=== PATIENT | male | born 1965 | race Caucasian/White ===

== ENCOUNTER → 2016-07-10 | Outpatient (CLI) | payer BC ==
--- NOTE | 2016-07-10 08:48 | CT ---
EXAMINATION TYPE: CT chest w con DATE OF EXAM: 07/10/2016 7:20 AM COMPARISON: NONE HISTORY: Lung nodule follow up CT DLP: 723 mGycm, Automated exposure control for dose reduction was used. CONTRAST: Performed injected with 100 mL of Omnipaque 300. TECHNIQUE: Axial images were obtained at 5 mm thick sections. Reconstructed images are reviewed on [employer] computer in the coronal plane. FINDINGS: Portion of the thyroid visualized is normal. Minimal compressive atelectasis is within the inferior dependent portions of the lung bases. 2 small 4 mm densities are within the right midlung. Series 3 image 27-28. The second nodule is maggie r visualized on the current examination. The first nodule is unchanged. There is a 0.4 cm area of inc reased density within the anterior right middle lobe. Series 3 image 30 which was stable from prior s tudy. No enlarged mediastinal or hilar adenopathy is evident. The ascending aorta diameter at the level o f the main pulmonary artery is 3.2 cm. The main pulmonary artery diameter at the bifurcation is 2.[address] sections are obtained through the upper abdomen. There is moderate fatty infiltration with in the liver abdomen is otherwise unremarkable within the [id number]. IMPRESSIONS: 1. Nodules previously identified are stable. A new nodule may be better visualized on the current konstantin dy. This could be due to volume averaging in the plane of section on the current study. Continued mon itoring is recommended.
== END ==
LOC: RADCTMAIN 06:53
PROVIDERS: ATTEND Family Medicine
DX: R91.8 Other nonspecific abnormal finding of lung field (principal)
CPT/HCPCS: 71260; Q9967

== ENCOUNTER → 2017-08-13 | Outpatient (CLI) | payer BC ==
--- NOTE | 2017-08-13 07:46 | CT ---
EXAMINATION TYPE: CT chest w con DATE OF EXAM: 08/13/2017 COMPARISON: 07/10/2016 and 01/16/2016. HISTORY: Follow-up for lung nodule CT DLP: 693 mGycm. Automated Exposure Control for Dose Reduction was Utilized. TECHNIQUE: CT scan of the thorax is performed following with IV Contrast, patient injected with 100 mL of Isovue 300. FINDINGS: LUNGS: There is overall stability in the 2 anterior right lower lobe pulmonary nodules abutting the i nterlobar fissure on sagittal images in comparison to the exam of 01/16/2016. These measure 4 mm on s eries 4 image 29 and 3 mm on series 4 image 28. Additionally the right middle lobe 4 mm groundglass p ulmonary nodule is also unchanged from the prior exam of 01/16/2016 and is seen on series 4 image 29. 2 mm pulmonary nodule is also seen along the left interlobar fissure within the lingula on series 4 image 40 peripherally. This is also retrospectively unchanged dating back to 2016. This is present on series 4 image 40. Lastly there is a 2 mm pulmonary nodule on series 4 image 12 within the anterior left upper lobe is retrospectively unchanged dating back to 2016. No new pulmonary nodules are seen. Remainder of the lungs are grossly clear with no focal consolidation. There is no pleural effusion or pneumothorax seen. The tracheobronchial tree is patent. MEDIASTINUM: There are no greater than 1 cm hilar or mediastinal lymph nodes. No pericardial effusi on is seen. OTHER: There is redemonstration of hepatic steatosis, partially visualized. There are mild multilevel degenerative changes of thoracic spine. IMPRESSION: Bilateral subcentimeter pulmonary nodules are unchanged dating back to 01/06/2016. Continu ed follow-up in one year is recommended. At that time if these pulmonary nodules are stable they shou ld be considered benign.
== END | disposition home or self-care (01) ==
LOC: RADCTMAIN 06:40
PROVIDERS: ATTEND Family Medicine
DX: R91.8 Other nonspecific abnormal finding of lung field (principal)
CPT/HCPCS: 71260; Q9967

== ENCOUNTER → 2017-11-23 | Outpatient (CLI) | payer BC ==
--- NOTE | 2017-11-23 21:52 | MR ---
EXAMINATION TYPE: MR shoulder RT wo con DATE OF EXAM: 11/23/2017 COMPARISON: Plain films 11/17/2017 [facility] right shoulder HISTORY: Pain in right shoulder TECHNIQUE: Multiplanar, multisequence imaging of the right shoulder is performed without contrast. FINDINGS: Rotator Cuff: There is a tear of the distal supraspinatus tendon at its insertion. This is incomplete and estimated at 1.3 cm in size. No retraction of the tendon or muscle is evident. No muscle atrophy is evident. There is fluid in the subacromial bursa and subdeltoid bursa. Moderate joint effusion is present. Acromioclavicular Joint: Hypertrophy with downward spurring which can contribute to impingement syndr ome. Glenohumeral Joint: Humerus articulates with the glenoid. Labrum: There is loss of the superior glenoid labrum. Tear and degenerative changes are likely presen t. Anterior glenoid labrum likely has a tear. Posterior inferior glenoid labrum is minimal and may peace ve a tear. Biceps Tendon: Long head of the biceps tendon is small but appears to reside within the bicipital maribeth ove. Horizontal portion appears to be visualized as intact. Bone marrow signal: No focal abnormal marrow signal is appreciated. Other: No additional significant abnormality is appreciated. IMPRESSION: 1. There is a tear of the insertion of the supraspinatus tendon estimated at 1.3 cm. No complete tear is evident and no tendon retraction or muscle atrophy is evident. 2. Moderate joint effusion. 3. Acromioclavicular joint hypertrophy. 4. Small long head biceps tendon. Partial tear could be considered. Tendon itself appears intact. 5. Glenoid labral tear likely SLAP lesion from the anterior to the superior portion.
== END | disposition home or self-care (01) ==
LOC: RADMRIMAIN 06:59
PROVIDERS: ATTEND Orthopaedic Surgery
DX: S46.011A Strain of muscle(s) and tendon(s) of the rotator cuff of right shoulder, initial encounter (principal); S43.491A Other sprain of right shoulder joint, initial encounter

== ENCOUNTER → 2018-05-10 | Outpatient (CLI) | payer BC ==
--- NOTE | 2018-05-10 16:34 | MR ---
EXAMINATION TYPE: MR cervical spine wo con DATE OF EXAM: 05/10/2018 COMPARISON: Prior cervical spine MRI 03/04/2017 HISTORY: Neck pain into kalia arms, Kalia arm numbness TECHNIQUE: Multiplanar, multisequence images of the cervical spine were acquired. C2-C3: No evidence for degenerative disc disease. No disc bulge/herniation or protrusion. No Canal stenosis. Foramina are patent bilaterally. C3-C4: No evidence for degenerative disc disease. No disc bulge/herniation or protrusion. No Canal stenosis. Foramina are patent bilaterally. C4-C5: Mild hypertrophic changes encroaches minimally on the foramina. No significant central stenosi s. No disc herniation. C5-C6: Posterior extension of endplate disc complex results in anterior mass effect on the thecal sac , mild spinal stenosis. Hypertrophic changes result in foraminal encroachment right greater than left . C6-C7: Posterior extension endplate disc complex causes mild anterior mass effect on the thecal sac. No significant central stenosis or foraminal encroachment. C7-T1: No evidence for degenerative disc disease. No disc bulge/herniation or protrusion. No Canal stenosis. Foramina are patent bilaterally. Cervical segments are intact. There is normal alignment. Cervical spinal cord is of normal signal. Craniovertebral junction relationships are within normal limits. Patient is status post anterior ce rvical fusion and discectomy at C3-C5. Loss of disc height and signal is present at C5-6 compatible w ith disc desiccation and degenerative disc disease. Minimal retrolisthesis grade 1 C5-6. There is spo ndylosis. IMPRESSION: Postop changes as described. Degenerative disc disease greatest at C5-6.
== END | disposition home or self-care (01) ==
LOC: RADMRIMAIN 11:58
DX: M50.022 Cervical disc disorder at C5-C6 level with myelopathy (principal); Z98.1 Arthrodesis status
CPT/HCPCS: 72141

== ENCOUNTER 2018-08-26 21:49 | Emergency (ER) | payer BC ==
[2018-08-26 22:20] VITALS: BP 135/82; PULSE 91; RESP 20; TEMP 98.3
[2018-08-26] MEDS ORDERED: DIPH,PERTUS(ACELL)TETVAC-LF 0.5 ML VIAL IM ONE (23:20)
[2018-08-26] MEDS ORDERED: LIDOCAINE 1% INJ 10MG/ML (20 ML MDV) SQ ONE (23:20)
--- NOTE | 2018-08-26 23:22 | ED ---
General Adult HPI - General Chief complaint: Wound/Laceration Stated complaint: Hand laceration Time Seen by Provider: 08/26/18 23:15 Source: patient Mode of arrival: ambulatory Limitations: no limitations - History of Present Illness Initial comments: Dictation was produced using [employer] dictation software. please excuse any grammatical, word or spelling errors. Chief Complaint: 53-year-old male presents with hand laceration. History of Present Illness: Lemuel 3-year-old male he was moving pallets when he suffered a crush injury to his right hand. States the event occurred approximately one hour prior to arrival he states that there was significant bleeding initially however it stopped. Patient's last tetanus was 9 years ago. Patient denies any pain A Vazquez the hand. The ROS documented in this emergency department record has been reviewed and confirmed by me. Those systems with pertinent positive or negative responses have been documented in the HPI. All other systems are other negative and/or noncontributory. PHYSICAL EXAM: General Impression: Alert and oriented x3, not in acute distress HEENT: Normocephalic atraumatic, extra-ocular movements intact, pupils equal and reactive to light bilaterally, mucous membranes moist. Cardiovascular: Heart regular rate and rhythm, S1&S2 audible, no murmurs, rubs or gallops Chest: Lungs clear to auscultation bilaterally, no rhonchi, no wheeze, no rales Abdomen: Bowel sounds present, abdomen soft, non-tender, non-distended, no organomegaly Musculoskeletal: Pulses present and equal in all extremities, no peripheral edema Motor: no focal deficits noted Neurological: CN II-XII grossly intact, no focal motor or sensory deficits noted Skin: 2 cm avulsion injury to the right palm area over the thenar eminence Psych: Normal affect and mood ED course: 53-year-old male presents with hand laceration. Signs upon arrival are within acceptable limits. Tetanus updated. Wound was irrigated. hand x- ray is unremarkable for any foreign bodies or acute injuries. Sutures were placed to repair laceration. Patient clear for discharge. Told to follow-up [facility] PCP in 10-14 days for wound check and possible suture removal. - Related Data Home Medications Medication Instructions Recorded Confirmed Dextroamphetamine/Amphetamine 20 mg PO BID 06/12/14 08/26/18 [Adderall] Omeprazole [PriLOSEC] 20 mg PO AC-BRKFST 06/12/14 08/26/18 HYDROcodone/APAP 10-325MG [[place] 1 tab PO TID PRN 11/26/14 08/26/18 10] Gabapentin 800 mg PO BID 08/26/18 08/26/18 Ibuprofen [Motrin] 800 mg PO TID PRN 08/26/18 08/26/18 Multivitamins, Thera [Multivitamin 1 tab PO DAILY 08/26/18 08/26/18 (formulary)] Allergies Allergy/AdvReac Type Severity Reaction Status Date / Time Penicillins Allergy Unknown Verified 08/26/18 23:18 Review of Systems ROS Statement: Those systems with pertinent positive or pertinent negative responses have been documented in the HPI. ROS Other: All systems not noted in ROS Statement are negative. 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 ADHD. GERD History of Any Multi-Drug Resistant Organisms: None Reported Past Surgical History: Back Surgery Additional Past Surgical History / Comment(s): nasal, carpal tunnel release Past Psychological History: No Psychological Hx Reported Smoking Status: Never smoker Past Alcohol Use History: Occasional Past Drug Use History: None Reported General Exam Limitations: no limitations Course Vital Signs 08/26/18 22:17 Temperature 98.3 F Pulse Rate 91 Respiratory 20 Rate Blood Pressure 135/82 O2 Sat by Pulse 96 Oximetry Procedures - Laceration Laceration #1 Consent Obtained: verbal consent Indication: laceration Site: hand Description: flap, avulsion Depth: simple, single layer Anesthetic Used: lidocaine 1% Anesthesia Technique: local infiltration Pre-repair: wound explored, irrigated extensively Type of Sutures: nylon Size of Sutures: 4-0 Technique: simple, interrupted Patient Tolerated Procedure: well Disposition Clinical Impression: Laceration Disposition: HOME SELF-CARE Condition: Good Instructions (If sedation given, give patient instructions): Laceration (ED) Is patient prescribed a controlled substance at d/c from ED?: No Referrals: Sherley Morales DO [Primary Care Provider] - 1-2 days Time of Disposition: 00:12
--- NOTE | 2018-08-26 23:52 | XR ---
EXAM: XR Right Hand Complete, 3 or More Views CLINICAL HISTORY: ITS.REASON XR Reason: Pain TECHNIQUE: Frontal, lateral and oblique views of the right hand. COMPARISON: None FINDINGS: Bones/joints: No displaced fracture or dislocation identified. Mild degenerative changes of the right first MCP joint. Probable artifacts in the scaphoid and capitate. Soft tissues: Diffuse soft tissue swelling tissue swelling. IMPRESSION: No displaced fracture or dislocation identified.
== END 2018-08-27 00:28 | disposition home or self-care (01) ==
LOC: EC 21:49
DX: S67.21XA Crushing injury of right hand, initial encounter (principal); S61.411A Laceration without foreign body of right hand, initial encounter; K21.9 Gastro-esophageal reflux disease without esophagitis; F90.9 Attention-deficit hyperactivity disorder, unspecified type; Z23 Encounter for immunization; Z89.022 Acquired absence of left finger(s); Z79.899 Other long term (current) drug therapy; Z88.0 Allergy status to penicillin; W23.1XXA Caught, crushed, jammed, or pinched between stationary objects, initial encounter; Y93.89 Activity, other specified
CPT/HCPCS: 73130; 90715; 99282; 12001; 90471; J2001

== ENCOUNTER 2018-08-27 19:56 | Emergency (ER) | payer BC ==
[2018-08-27 20:39] VITALS: TEMP 98.8
[2018-08-27] MEDS ORDERED: LIDOCAINE 1% INJ 10MG/ML (20 ML MDV) SQ ONE (22:00)
[2018-08-27] MEDS ORDERED: CEPHALEXIN 500MG STARTER PACK 4 CAP BTL PO STA (23:41)
--- NOTE | 2018-08-27 23:46 | ED ---
General Adult HPI - General Chief complaint: Wound/Laceration Stated complaint: stitches coming out of hand-revisit Time Seen by Provider: 08/27/18 21:26 Source: patient Mode of arrival: ambulatory Limitations: no limitations - History of Present Illness Initial comments: Patient is a 53-year-old male presenting to emergency department with a laceration. Patient reports he was here at the emergency department yesterday for a laceration repair. Patient reportedly received 5 sutures and after he went home and used gloves to work on his garage, the sutures arrival and laceration repair. Patient denies any erythema, swelling, discharge. Patient denies fever, nausea, vomiting, lightheadedness, chest pain, shortness of breath, headaches. Patient reports his tetanus status is up-to-date. Patient denies any numbness or tingling. Patient denies any numbness tingling or limited range of motion. Patient reports the pain is exacerbated due to his carpal tunnel. - Related Data Home Medications Medication Instructions Recorded Confirmed Dextroamphetamine/Amphetamine 20 mg PO BID 06/12/14 08/26/18 [Adderall] Omeprazole [PriLOSEC] 20 mg PO AC-BRKFST 06/12/14 08/26/18 HYDROcodone/APAP 10-325MG [[place] 1 tab PO TID PRN 11/26/14 08/26/18 10] Gabapentin 800 mg PO BID 08/26/18 08/26/18 Ibuprofen [Motrin] 800 mg PO TID PRN 08/26/18 08/26/18 Multivitamins, Thera [Multivitamin 1 tab PO DAILY 08/26/18 08/26/18 (formulary)] Previous Rx's Medication Instructions Recorded Cephalexin [Keflex] 500 mg PO Q6HR #40 cap 08/27/18 Allergies Allergy/AdvReac Type Severity Reaction Status Date / Time No Known Allergies Allergy Verified 08/27/18 20:39 Review of Systems ROS Statement: Those systems with pertinent positive or pertinent negative responses have been documented in the HPI. ROS Other: All systems not noted in ROS Statement are negative. 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 ADHD. GERD History of Any Multi-Drug Resistant Organisms: MRSA Date of last positivie culture/infection: 2014 MDRO Source:: knee Past Surgical History: Back Surgery Additional Past Surgical History / Comment(s): nasal, carpal tunnel release, neck Past Psychological History: No Psychological Hx Reported Smoking Status: Never smoker Past Alcohol Use History: Occasional Past Drug Use History: None Reported General Exam Limitations: no limitations General appearance: alert, in no apparent distress Head exam: Present: atraumatic, normocephalic, normal inspection Eye exam: Present: normal appearance, PERRL, EOMI Pupils: Present: normal accommodation ENT exam: Present: normal exam Neck exam: Present: normal inspection Respiratory exam: Present: normal lung sounds bilaterally Cardiovascular Exam: Present: regular rate, normal rhythm, normal heart sounds Extremities exam: Present: normal capillary refill, other (3 cm flap laceration with 2 sutures intact in [address].) Back exam: Present: normal inspection Neurological exam: Present: alert, oriented X3 Psychiatric exam: Present: normal affect, normal mood Skin exam: Present: warm, intact, normal color Course Vital Signs 08/27/18 20:35 Temperature 98.8 F Pulse Rate 91 Respiratory 16 Rate Blood Pressure 132/82 O2 Sat by Pulse 98 Oximetry Procedures - Laceration Laceration #1 Consent Obtained: verbal consent Indication: laceration Site: hand Size (cm): 3 Description: flap Depth: simple, single layer Anesthetic Used: lidocaine 1% Anesthesia Technique: local infiltration Amount (mls): 10 Type of Sutures: nylon Size of Sutures: 4-0 Technique: simple, interrupted Patient Tolerated Procedure: well Medical Decision Making - Medical Decision Making Patient is a 53-year-old male presenting to emergency department with a laceration. I removed the old sutures and placed 5 sutures. Patient will also be discharged with Keflex. Patient advised to follow-up primary care. Patient advised to return to emergency department if symptoms worsen. Patient advised to return after 10 days for suture removal. Case discussed with physician. Disposition Clinical Impression: Laceration Disposition: HOME SELF-CARE Condition: Stable Additional Instructions: Please take prescribed medication as directed. Please follow up primary care. Patient to emergency department if symptoms worsen. Prescriptions: Cephalexin [Keflex] 500 mg PO Q6HR #40 cap Is patient prescribed a controlled substance at d/c from ED?: No Referrals: Sherley Morales DO [Primary Care Provider] - 1-2 days Time of Disposition: 23:46
[2018-08-27 23:47] VITALS: BP 147/86; PULSE 81; RESP 18
== END 2018-08-27 23:56 | disposition home or self-care (01) ==
LOC: EC 19:56
DX: S61.411A Laceration without foreign body of right hand, initial encounter (principal); K21.9 Gastro-esophageal reflux disease without esophagitis; F90.9 Attention-deficit hyperactivity disorder, unspecified type; Z79.899 Other long term (current) drug therapy; Z86.14 Personal history of Methicillin resistant Staphylococcus aureus infection; X58.XXXA Exposure to other specified factors, initial encounter; Y93.89 Activity, other specified
CPT/HCPCS: 99282; 12002; J2001

== ENCOUNTER → 2019-05-17 | Outpatient (CLI) | payer BC ==
--- NOTE | 2019-05-17 11:36 | MR ---
EXAMINATION TYPE: MR cervical spine wo/w con DATE OF EXAM: 05/17/2019 COMPARISON: 03/04/2017 HISTORY: 54-year-old male Cervicalgia Technique: Multiplanar, multisequence images of the cervical spine were obtained before and after adm inistration of 10 mL intravenous Gadavist gadolinium contrast. FINDINGS: No craniocervical junction anomaly, predental space widening, or prevertebral soft tissue swelling. Reversal of the normal cervical doses all preserved alignment. Status post ACDF from C3 through C5 levels. There is degenerative disc disease below the fusion at C5 -C6 with desiccated and diffusely bulging disc. There seems to be some degenerative ankylosis across the right-sided C3-C4 facet joints. Multilevel h ypertrophic facet and uncovertebral joint arthropathy is present. Normal course and signal intensity of the cervical spinal cord. No abnormal enhancement within the sp inal canal. At C2-C3, facet arthropathy without significant canal or foraminal stenosis. At C3-C4, mild facet arthropathy without significant canal or foraminal stenosis. At C4-C5, mild facet arthropathy without significant canal or foraminal stenosis. At C5-C6, below the fusion, there is broad-based posterior disc protrusion with uncovertebral joint a nd facet degenerative change. Changes result in moderate right neural foraminal stenosis and mild spi nal canal stenosis with abutment and slight flattening of the ventral cord. At C6-C7, facet and uncovertebral joint arthropathy with mild left neural foraminal stenosis. Mild po sterior disc bulge causes minimal narrowing of the spinal canal. At C7-T1, facet arthropathy with mild bilateral neuroforaminal stenoses. No spinal canal stenosis. No prevertebral or paravertebral soft tissue abnormality. IMPRESSION: 1. Interval C3-C5 ACDF. There is also been interval degenerative ankylosis across the right-sided C3- C4 facet joint. 2. Moderate progressive degenerative disc disease at C5-C6, below the fusion. Disc bulge with facet a nd uncovertebral joint arthropathy here causes mild spinal canal stenosis with abutment and slight fl attening of the ventral cord. Moderate right neuroforaminal stenosis. 3. Additional scattered facet and uncovertebral joint arthropathy. There is mild left neural foramina l stenosis at C6-C7 and mild on both sides at C7-T1.
== END | disposition home or self-care (01) ==
LOC: RADMRIMAIN 10:22
PROVIDERS: ATTEND Family Medicine
DX: M48.02 Spinal stenosis, cervical region (principal); M48.03 Spinal stenosis, cervicothoracic region; M50.122 Cervical disc disorder at C5-C6 level with radiculopathy; M46.92 Unspecified inflammatory spondylopathy, cervical region; Z98.1 Arthrodesis status
CPT/HCPCS: 72156; A9585

== ENCOUNTER → 2020-09-26 | Outpatient (CLI) | payer BC ==
--- NOTE | 2020-09-26 15:44 | US ---
EXAMINATION TYPE: US venous doppler duplex LE LT DATE OF EXAM: 09/26/2020 2:32 PM COMPARISON: 11/26/2014 CLINICAL HISTORY: M25.562, M25.222, M17.12. Left knee pain. No redness. No swelling. SIDE PERFORMED: Left TECHNIQUE: The lower extremity deep venous system is examined utilizing real time linear array sonog radha with graded compression, doppler sonography and color-flow sonography. VESSELS IMAGED: Common Femoral Vein Deep Femoral Vein Greater Saphenous Vein * Femoral Vein Popliteal Vein Small Saphenous Vein * Proximal Calf Veins (* superficial vessels) Left Leg: Negative for DVT IMPRESSION: 1. No evidence of deep venous thrombosis in the left lower extremity veins.
== END | disposition home or self-care (01) ==
LOC: RADUSWWP 14:04
PROVIDERS: ATTEND Orthopaedic Surgery
DX: M23.222 Derangement of posterior horn of medial meniscus due to old tear or injury, left knee (principal); M17.12 Unilateral primary osteoarthritis, left knee; I80.9 Phlebitis and thrombophlebitis of unspecified site; Z48.89 Encounter for other specified surgical aftercare

== ENCOUNTER 2020-11-02 06:23 | Emergency (ER) | payer BC ==
[2020-11-02 06:29] VITALS: TEMP 97.5
[2020-11-02] MEDS ORDERED: SODIUM CHLORIDE 0.9% 1,000 ML IV STA (06:35)
[2020-11-02] MEDS ORDERED: HYDROmorphone 1 MG/ML 1 ML SYRINGE IVP STA ×2 (06:35→08:01)
[2020-11-02] MEDS ORDERED: ONDANSETRON 4 MG/2 ML VIAL IVP STA (06:35)
[2020-11-02 07:00] LABS: Basophils % (A) 0 %; Eosinophils # (A) 0.1 k/uL (0-0.7); Eosinophils % (A) 1 %; HCT 45.6 % (39.0-53.0); HGB 15.2 gm/dL (13.0-17.5); Lymphocytes # (A) 1.2 k/uL (1.0-4.8); Lymphocytes % (A) 12 %; MCH 31.3 pg (25.0-35.0); MCHC 33.3 g/dL (31.0-37.0); MCV 94.2 fL (80.0-100.0); Monocytes # (A) 0.3 k/uL (0-1.0); Monocytes % (A) 3 %; Neutrophils # (A) 8.3 k/uL (1.3-7.7); Neutrophils % (A) 83 %; Platelet Count 331 k/uL (150-450); RBC 4.84 m/uL (4.30-5.90); RDW 12.2 % (11.5-15.5); WBC 10.1 k/uL (3.8-10.6)
[2020-11-02 07:17] LABS: ALT 39 U/L (4-49); AST 32 U/L (17-59); African American GFR (CKD) >90 (>60 ml/min/1.73 sqM); Albumin 4.7 g/dL (3.5-5.0); Alkaline Phosphatase 96 U/L (38-126); Amylase 54 U/L (30-110); Anion Gap 11 mmol/L; Blood Urea Nitrogen 17 mg/dL (9-20); Calcium 10.3 mg/dL (8.4-10.2); Carbon Dioxide 23 mmol/L (22-30); Chloride 107 mmol/L (98-107); Glucose 136 mg/dL (74-99); Lipase 75 U/L (23-300); Non-African American GFR(CKD) 84 (>60 ml/min/1.73 sqM); Potassium 4.3 mmol/L (3.5-5.1); Sodium 141 mmol/L (137-145); Total Bilirubin 0.4 mg/dL (0.2-1.3); Total Protein 7.4 g/dL (6.3-8.2)
--- NOTE | 2020-11-02 08:28 | CT ---
EXAMINATION TYPE: CT abdomen pelvis w con DATE OF EXAM: 11/02/2020 COMPARISON: NONE HISTORY: 55-year-old male with abdominal pain, constipation for 2 days TECHNIQUE: Contiguous axial scanning of the abdomen and pelvis following administration of 100 ml Iso shalom 300 IV contrast. Delayed images through the kidneys and coronal/sagittal reconstructions perform ed. CT DLP: 1671.4 mGycm Automated exposure control for dose reduction was used. FINDINGS: Heart upper limits of normal in size without pericardial effusion. Prominent hazy dependent atelectas is in the visualized lower lungs. Liver enlarged measuring 20.9 cm. Tiny hypervascular focus at the right hepatic dome, probable vascul ar shunting.. Portal venous system is patent. No biliary ductal dilatation. Gallbladder, adrenal glands, spleen with a anterior inferior splenule, and pancreas appear within nor mal limits. Right kidney shows a punctate 2 mm nonobstructive lower pole renal calculus and a cortical scar at th e posterior upper pole. Left kidney also shows cortical scar posterior upper pole, couple punctate 2 mm nonobstructive calcul i, and mild hydronephrosis with perinephric edema and delayed excretion of contrast from the left kid yvon. There is a 3 mm calculus at the left UVJ. There is a single mildly dilated loop of small bowel in the left mid abdomen with a caliber of 3.3 cm there is narrowing to normal caliber on either end of this 15 cm long segment and findings may be in cidental and transient or could represent a regional ileus. Clinical surveillance can be performed to exclude some type of unusual internal hernia here. No free fluid or free air. Normal appendix. Mild scattered stool. No perisplenic inflammatory change. Bladder urine distended. Prostate gland measures 4.0 cm wide. Patulous left inguinal canal. No abnorm al fluid collection pelvis or pelvic lymphadenopathy. Colon mild degenerative change at the hips. Degenerative bridging ankylosis left SI joint. Mild multi level degenerative disc disease throughout the spine. Hypertrophic facet arthropathy lumbar spine. IMPRESSION: 1. A 3 MM CALCULUS AT THE LEFT UVJ WITH MILD OBSTRUCTIVE UROPATHY. ASSOCIATED PROMINENT PERINEPHRIC E KATIE IS LIKELY REACTIVE TO THE URETERAL OBSTRUCTION. SUPERIMPOSED INFECTION CAN BE EXCLUDED ON A CLIN ICAL BASIS. 2. ADDITIONAL PUNCTATE 2 MM NONOBSTRUCTIVE CALCULI IN BOTH KIDNEYS. 3. A SINGLE MILDLY DILATED LOOP OF SMALL BOWEL IN THE LEFT MID ABDOMEN MEASURES UP TO 3.3 CM. THIS MA Y BE TRANSIENT OR COULD REPRESENT A REGIONAL ILEUS. CLINICAL SURVEILLANCE TO EXCLUDE WORSENING SUCH A S FROM SOME TYPE OF UNUSUAL INTERNAL HERNIA. 4. HEPATOMEGALY (20.9 CM).
--- NOTE | 2020-11-02 08:38 | ED ---
Abdominal Pain HPI - General Chief Complaint: Abdominal Pain Stated Complaint: ABD pain Time Seen by Provider: 11/02/20 06:31 Source: patient, RN notes reviewed Mode of arrival: ambulatory - History of Present Illness Initial Comments: Patient is a 55-year-old male that presents to emergency department complaining of left-sided abdominal pain with some mild constipation. He notes that he recently had rotator cuff surgery is been taking his painkillers as prescribed. He notes that last night he started taking stool softeners because he felt like he is backed up. He notes that the pain started approximately 1:00 this morning came out of nowhere. He notes that he did have one bout of urination or he thought he might have a UTI due to some burning. Patient denies any intra- abdominal surgery history or abdominal medical history. He was otherwise a well-appearing 55-year-old male in moderate amounts pain or distress. He notes that his pain was approximately a 10 out of 10 and has not taken anything for pain. He denied any chest pain shortness breath headache vomiting fever fatigue chills melena hematochezia or hematemesis. - Related Data Home Medications Medication Instructions Recorded Confirmed Dextroamphetamine/Amphetamine 20 mg PO BID 06/12/14 08/26/18 [Adderall] Omeprazole [PriLOSEC] 20 mg PO AC-BRKFST 06/12/14 08/26/18 HYDROcodone/APAP 10-325MG [[place] 1 tab PO TID PRN 11/26/14 08/26/18 10] Gabapentin 800 mg PO BID 08/26/18 08/26/18 Ibuprofen [Motrin] 800 mg PO TID PRN 08/26/18 08/26/18 Multivitamins, Thera [Multivitamin 1 tab PO DAILY 08/26/18 08/26/18 (formulary)] Previous Rx's Medication Instructions Recorded Cephalexin [Keflex] 500 mg PO Q6HR #40 cap 08/27/18 Ketorolac [Toradol] 10 mg PO Q8HR #15 tab 11/02/20 Ondansetron Odt [Zofran Odt] 4 mg PO Q8HR PRN #10 tab 11/02/20 Tamsulosin [Flomax] 0.4 mg PO DAILY #7 cap 11/02/20 Allergies Allergy/AdvReac Type Severity Reaction Status Date / Time No Known Allergies Allergy Verified 11/02/20 06:29 Review of Systems ROS Statement: Those systems with pertinent positive or pertinent negative responses have been documented in the HPI. ROS Other: All systems not noted in ROS Statement are negative. 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 ADHD. GERD History of Any Multi-Drug Resistant Organisms: MRSA Date of last positivie culture/infection: 2014 MDRO Source:: knee Past Surgical History: Back Surgery Additional Past Surgical History / Comment(s): nasal, carpal tunnel release, neck Past Psychological History: No Psychological Hx Reported Smoking Status: Never smoker Past Alcohol Use History: Occasional Past Drug Use History: None Reported General Exam General appearance: alert, in no apparent distress Head exam: Present: atraumatic, normocephalic, normal inspection Eye exam: Present: normal appearance, PERRL, EOMI. Absent: scleral icterus, conjunctival injection, periorbital swelling Neck exam: Present: normal inspection Respiratory exam: Present: normal lung sounds bilaterally. Absent: respiratory distress, wheezes, rales, rhonchi, stridor Cardiovascular Exam: Present: regular rate, normal rhythm, normal heart sounds. Absent: systolic murmur, diastolic murmur, rubs, gallop, clicks GI/Abdominal exam: Present: soft, tenderness (Left hemisphere.), normal bowel sounds. Absent: distended, guarding, rebound, rigid Extremities exam: Present: normal inspection, full ROM, normal capillary refill. Absent: tenderness, pedal edema, joint swelling, calf tenderness Neurological exam: Present: alert, oriented X3 Psychiatric exam: Present: normal affect, normal mood Skin exam: Present: warm, dry, intact, normal color. Absent: rash Course Vital Signs 11/02/20 11/02/20 06:25 08:00 Temperature 97.5 F L Pulse Rate 74 74 Respiratory 19 22 Rate Blood Pressure 154/99 131/84 O2 Sat by Pulse 98 98 Oximetry Medical Decision Making - Medical Decision Making 55-year-old male status post rotator cuff surgery complaining of left-sided abdominal pain. He notes that he's been taking his narcotic painkillers without stool softeners thinks he may be constipated. Labs, 1 L normal saline, 1 mg of Dilaudid, CT of the abdomen and pelvis ordered. Labs unremarkable. Computed tomography scan shows several small kidney stones one in the left UVJ with mild obstruction. Case discussed with Dr. Loo, patient can discharge home with conservative management. Patient instructed to return if anything worsens or changes. - Lab Data Result diagrams: 11/02/20 06:54 11/02/20 06:54 Lab Results 11/02/20 11/02/20 Range/Units 06:54 06:54 WBC 10.1 (3.8-10.6) k/uL RBC 4.84 (4.30-5.90) m/uL Hgb 15.2 (13.0-17.5) gm/dL Hct 45.6 (39.0-53.0) % MCV 94.2 (80.0-100.0) fL MCH 31.3 (25.0-35.0) pg MCHC 33.3 (31.0-37.0) g/dL RDW 12.2 (11.5-15.5) % Plt Count 331 (150-450) k/uL MPV 8.0 Neutrophils % 83 % Lymphocytes % 12 % Monocytes % 3 % Eosinophils % 1 % Basophils % 0 % Neutrophils # 8.3 H (1.3-7.7) k/uL Lymphocytes # 1.2 (1.0-4.8) k/uL Monocytes # 0.3 (0-1.0) k/uL Eosinophils # 0.1 (0-0.7) k/uL Basophils # 0.0 (0-0.2) k/uL Sodium 141 (137-145) mmol/L Potassium 4.3 (3.5-5.1) mmol/L Chloride 107 (98-107) mmol/L Carbon Dioxide 23 (22-30) mmol/L Anion Gap 11 mmol/L BUN 17 (9-20) mg/dL Creatinine 1.00 (0.66-1.25) mg/dL Est GFR (CKD-EPI)AfAm >90 (>60 ml/min/1.73 sqM) Est GFR (CKD-EPI)NonAf 84 (>60 ml/min/1.73 sqM) Glucose 136 H (74-99) mg/dL Calcium 10.3 H (8.4-10.2) mg/dL Total Bilirubin 0.4 (0.2-1.3) mg/dL AST 32 (17-59) U/L ALT 39 (4-49) U/L Alkaline Phosphatase 96 (38-126) U/L Total Protein 7.4 (6.3-8.2) g/dL Albumin 4.7 (3.5-5.0) g/dL Amylase 54 (30-110) U/L Lipase 75 (23-300) U/L - Radiology Data Radiology results: report reviewed, image reviewed Computed tomography scan of the abdomen and pelvis: A 3 mm calculus at the left UVJ with mild obstructive uropathy. Associated prominent perinephric edema is likely reactive to the ureteral obstruction. Superimposed infection can't be excluded on a clinical basis. Additional punctate 2 mm nonobstructive calculi in both kidneys. A single mildly dilated loop of small bowel in the left mid abdomen measures up to 3.3 cm. This may be transient or could represent a regional ileus clinical surveillance to exclude worsening such as from some type of unusual internal hernia. Hepatomegaly. Disposition Clinical Impression: Abdominal pain, Bilateral kidney stones Disposition: HOME SELF-CARE Condition: Stable Instructions (If sedation given, give patient instructions): Abdominal Pain (ED) Additional Instructions: Please return to the Emergency Department if symptoms worsen or any other concerns. Follow-up with primary care in the next 1-2 days. Follow-up with urologist as planned. Take Toradol, Zofran, Flomax as prescribed. Increase oral fluids. Is patient prescribed a controlled substance at d/c from ED?: No Referrals: Sherley Morales DO [Primary Care Provider] - 1-2 days Time of Disposition: 09:02
[2020-11-02] MEDS ORDERED: KETOROLAC 15 MG/ML 1 ML VIAL IVP STA (09:00)
[2020-11-02 09:50] VITALS: RESP 18
[2020-11-02 09:54] VITALS: BP 147/103; PULSE 71
[2020-11-02 10:31] LABS: Appearance,Urine Clear (Clear); Bilirubin,Urine Negative (Negative); Blood,Urine Negative (Negative); Color,Urine Light Yellow; Glucose,Urine (UA) Negative (Negative); Ketones,Urine Negative (Negative); Leukocyte Esterase,Urine Negative (Negative); Nitrite,Urine Negative (Negative); PH, Urine 7.5 (5.0-8.0); Protein,Urine Negative (Negative); Specific Gravity,Urine 1.024 (1.001-1.035); Urobilinogen,Urine <2.0 mg/dL (<2.0)
== END 2020-11-02 09:54 | disposition home or self-care (01) ==
LOC: EC 06:23
DX: N20.0 Calculus of kidney (principal); K59.00 Constipation, unspecified; K21.9 Gastro-esophageal reflux disease without esophagitis; Z79.899 Other long term (current) drug therapy
CPT/HCPCS: 99284; 96374 ×2; 96375; 96361; 36415; 80053; 82150; 83690; 85025; 81003; 74177; J2405; J1170; J1885; Q9967

== ENCOUNTER 2023-09-12 10:00 | Emergency (ER) | payer BC ==
[2023-09-12 10:10] VITALS: BP 157/90; PULSE 75; RESP 20; TEMP 98.1
[2023-09-12] MEDS: DIPH,PERTUS(ACELL)TETVAC-LF 0.5 ML VIAL IM ONE (10:36)
[2023-09-12] MEDS: LIDOCAINE 1% INJ 10MG/ML (20 ML MDV) SQ ONE (10:37)
[2023-09-12] MEDS: IBUPROFEN 800 MG TAB PO STA (10:38)
[2023-09-12] MEDS: MORPHINE SULFATE 2 MG/ML SYRINGE IM STA (10:38)
--- NOTE | 2023-09-12 11:08 | ED ---
Wound/Laceration HPI - General Chief Complaint: Wound/Laceration Stated Complaint: Head Laceration Time Seen by Provider: 09/12/23 10:11 Source: patient, RN notes reviewed Mode of arrival: ambulatory Limitations: no limitations - History of Present Illness Initial Comments: This is a 58-year-old male who presents to the emergency department for a forehead laceration. 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 There was no impact anywhere aside from the part of his forehead where there is a laceration. Denies any loss consciousness. Not taking any blood thinners. Unsure when his last tetanus vaccine was. - Related Data Home Medications Medication Instructions Recorded Confirmed Dextroamphetamine/Amphetamine 20 mg PO BID 06/12/14 08/26/18 [Adderall] Omeprazole [PriLOSEC] 20 mg PO AC-BRKFST 06/12/14 08/26/18 HYDROcodone/APAP 10-325MG [[place] 1 tab PO TID PRN 11/26/14 08/26/18 10] Gabapentin 800 mg PO BID 08/26/18 08/26/18 Ibuprofen [Motrin] 800 mg PO TID PRN 08/26/18 08/26/18 Multivitamins, Thera [Multivitamin 1 tab PO DAILY 08/26/18 08/26/18 (formulary)] Previous Rx's Medication Instructions Recorded Cephalexin [Keflex] 500 mg PO Q6HR #40 cap 08/27/18 Ketorolac [Toradol] 10 mg PO Q8HR #15 tab 11/02/20 Ondansetron Odt [Zofran Odt] 4 mg PO Q8HR PRN #10 tab 11/02/20 Tamsulosin [Flomax] 0.4 mg PO DAILY #7 cap 11/02/20 Allergies Allergy/AdvReac Type Severity Reaction Status Date / Time No Known Allergies Allergy Verified 09/12/23 10:10 Review of Systems ROS Statement: Those systems with pertinent positive or pertinent negative responses have been documented in the HPI. ROS Other: All systems not noted in ROS Statement are negative. 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 ADHD. GERD History of Any Multi-Drug Resistant Organisms: MRSA Date of last positivie culture/infection: 2014 MDRO Source:: knee Past Surgical History: Back Surgery Additional Past Surgical History / Comment(s): nasal, carpal tunnel release, neck Past Psychological History: No Psychological Hx Reported Smoking Status: Never smoker Past Alcohol Use History: Occasional Past Drug Use History: None Reported General Exam Limitations: no limitations General appearance: alert, in no apparent distress Head exam: Present: other (V-shaped laceration to the right side of the forehead. Active bleeding.) Eye exam: Present: normal appearance, PERRL, EOMI. Absent: scleral icterus, conjunctival injection, periorbital swelling Respiratory exam: Present: normal lung sounds bilaterally. Absent: respiratory distress, wheezes, rales, rhonchi, stridor Cardiovascular Exam: Present: regular rate, normal rhythm, normal heart sounds. Absent: systolic murmur, diastolic murmur, rubs, gallop, clicks Neurological exam: Present: alert, oriented X3, CN II-XII intact Psychiatric exam: Present: normal affect, normal mood Course Vital Signs 09/12/23 09/12/23 10:08 11:29 Temperature 98.1 F 98.1 F Pulse Rate 75 75 Respiratory 20 20 Rate Blood Pressure 157/90 157/90 O2 Sat by Pulse 99 99 Oximetry Procedures - Laceration Laceration #1 Consent Obtained: verbal consent Indication: laceration Site: face Size (cm): 8 Description: flap Depth: simple, single layer Anesthetic Used: lidocaine 1% Anesthesia Technique: local infiltration Amount (mls): 5 Pre-repair: wound explored, irrigated extensively Type of Sutures: nylon Size of Sutures: 5-0 Number of Sutures: 10 Technique: simple, interrupted Medical Decision Making - Medical Decision Making This is a 58 year old male who presents to the emergency department for a laceration. Was pt. sent in by a medical professional or institution? @ -No Did you speak to anyone other than the patient for history? @ -No Did you review nursing and triage notes? @ -Yes, and I agree, it is accurate with regards to the patient's symptoms. Were old charts reviewed? @ -No Differential Diagnosis? @ -Differential Laceration: Laceration, abrasion, burn, abscess, cellulitis, this is not meant to be an all- inclusive list. EKG interpreted by me (3pts min.)? @ -Not obtained X-rays interpreted by me (1pt min.)? @ -Not obtained CT interpreted by me (1pt min.)? @ -Not obtained U/S interpreted by me (1pt. min.)? @ -Not obtained What testing was considered but not performed? (CT, X-rays, U/S, labs)? Why? @ -None What meds were considered but not given? Why? @ -None Did you discuss the management of the patient with other professionals? @ -No Did you reconcile home meds? @ -No Was smoking cessation discussed for >3mins.? @ -No Was critical care preformed (if so, how long)? @ -No Were there social determinants of health that impacted care today? How? (Homelessness, low income, unemployed, alcoholism, drug addiction, transportation, low edu. Level, literacy, decrease access to med. care, halfway, rehab)? @ -No Was there de-escalation of care discussed even if they declined? (Discuss DNR or withdrawal of care, Hospice)? @ -No What co-morbidities impacted this encounter? (DM, HTN, Smoking, COPD, CAD, Cancer, CVA, Hep., AIDS, mental health diagnosis, sleep apnea, morbid obesity)? @ -None Was patient admitted / discharged? @ -Discharged. Physical examination demonstrates a laceration to the right side of the forehead. Patient did not sustain a substantial impact to the head in addition to the laceration. Because there was no loss of consciousness, he is not on any blood thinners, and has a GCS of 15, no imaging was obtained. Tetanus vaccine was updated. Laceration was thoroughly cleansed and repaired with sutures. Advised ibuprofen and Tylenol as needed for pain relief and returning in 10 to 14 days for suture removal. Undiagnosed new problem with uncertain prognosis? @ -None Drug Therapy requiring intensive monitoring for toxicity (Heparin, Nitro, Insulin, Cardizem)? @ -None Were any procedures done? @ -Laceration repair with sutures Diagnosis/symptom? @ -Laceration Acute, or Chronic, or Acute on Chronic? @ -Acute Uncomplicated (without systemic symptoms) or Complicated (systemic symptoms)? @ -Uncomplicated Side effects of treatment? @ -None Exacerbation, Progression, or Severe Exacerbation] @ -Not applicable Poses a threat to life or bodily function? @ -No Return precautions reviewed in depth, the patient is instructed to return to the emergency department with any new, worsening, or concerning symptoms. Patient verbalized understanding. This case was discussed in detail with the attending ED physician, Dr. Campos. Presentation, findings, and treatment plan discussed in detail as well. Disposition Clinical Impression: Laceration Disposition: HOME SELF-CARE Instructions (If sedation given, give patient instructions): Care For Your Stitches (ED) Additional Instructions: Return to the emergency department with any new, worsening, or concerning symptoms and in 10-14 days for removal of your stitches. Alternate with ibuprofen and Tylenol as needed for pain relief. Is patient prescribed a controlled substance at d/c from ED?: No Referrals: Ilir Morales MD [Primary Care Provider] - 1-2 days Time of Disposition: 11:08
== END 2023-09-12 11:30 | disposition home or self-care (01) ==
LOC: EC 10:00
DX: S01.81XA Laceration without foreign body of other part of head, initial encounter (principal); Z23 Encounter for immunization; X58.XXXA Exposure to other specified factors, initial encounter
CPT/HCPCS: 90715; 99282; 96372; 90471; 12015; J2001; J2270

== ENCOUNTER → 2023-09-17 | Outpatient (CLI) | payer BC ==
--- NOTE | 2023-09-17 19:50 | MR ---
EXAMINATION TYPE: MR knee RT wo con DATE OF EXAM: 09/17/2023 COMPARISON: None HISTORY: Right knee pain. TECHNIQUE: Multiplanar, multisequence imaging of the right knee is performed without IV contrast. FINDINGS: Findings: There is mild contusion of the posterior mid tibial plateau without acute fracture. There is a small joint effusion. There is a small ganglion cyst associated with the distal posterior cruciate ligament. Anterior and p osterior cruciate ligaments are intact. There is a grade 1-2 strain medial collateral ligament. The lateral collateral ligament is intact. There is a tear of the posterior horn of the medial meniscus. The lateral meniscus is intact. There is moderate narrowing of the medial femoral condyle cartilage and mild narrowing of the lateral femoral condyle cartilage consistent with osteoarthritic change. There is complete loss of the cartilage of the medial patellar facet.. IMPRESSION: 1. Tricompartment osteoarthritis as described above. 2. Small joint effusion and mild tibial plateau contusion. 3. Grade 1-2 strain of the medial collateral ligament. 4. Tear of the posterior horn of the medial meniscus.
== END | disposition home or self-care (01) ==
LOC: RADMRIMAIN 17:04
PROVIDERS: ATTEND Orthopaedic Surgery
DX: M17.11 Unilateral primary osteoarthritis, right knee (principal); S80.01XA Contusion of right knee, initial encounter; S83.241A Other tear of medial meniscus, current injury, right knee, initial encounter

== ENCOUNTER → 2024-04-20 | Outpatient (CLI) | payer BC ==
--- NOTE | 2024-04-20 22:47 | MR ---
INDICATION: Patient age:Male; 59 years old; Reason for study: M54.41; [facility]. COMPARISONS: CT abdomen and pelvis 11/02/2020. TECHNIQUE: Multi planar, multi sequence imaging was performed utilizing: T1-weighted, T2-weighted, a nd turbo inversion recovery imaging of the lumbar spine. The patient was not given contrast. FINDINGS: The lumbar vertebral bodies do have preserved heights and alignment. Mild multilevel anter ior osteophytosis. Multilevel disc desiccation is present. The conus medullaris and the distal spina l cord do appear unremarkable with regards to their signal intensity and morphology. T12-L1: No significant disc pathology is identified. The spinal canal is patent. Bilateral facet arth ropathy. Mildly prominent posterior epidural fat. No significant neural foraminal stenosis. L1-L2: No significant disc pathology is identified. The spinal canal is patent. Bilateral facet arth ropathy. Mildly prominent posterior epidural fat. No significant neural foraminal stenosis. L2-L3: No significant disc pathology is identified. The spinal canal is patent. Bilateral facet arth ropathy. Mildly prominent posterior epidural fat. No significant neural foraminal stenosis. L3-L4: Broad-based disc bulge with mild effacement of the anterior thecal sac. Mildly prominent post erior epidural fat. Ligamentum flavum buckling. Mild central canal stenosis. Bilateral facet arthropa thy with edema identified. Mild to moderate bilateral neural foraminal stenosis.. L4-L5: Broad-based disc bulge with mild effacement of the anterior thecal sac. Mildly prominent poste rior epidural fat. Ligamentum flavum buckling. Mild central canal stenosis. Bilateral facet arthropat hy. Moderate to severe bilateral neural foraminal stenosis. L5-S1: The intervertebral disc appears round on its contour posteriorly without significant mass eff ect upon the thecal sac. Facet joints are enlarged. Neural canals do remain patent. Other significant findings: None. IMPRESSION: Multilevel disc degeneration with associated osteoarthritic changes as described above. No evidence f or disc herniation or significant central canal stenosis. Advanced bilateral facet arthropathy with e tory involving L4-L5 resulting in moderate to severe bilateral neural foraminal stenosis. [facility], , 04/20/2024 10:45 PM
== END | disposition home or self-care (01) ==
LOC: RADMRIMAIN 21:45
PROVIDERS: ATTEND Family Medicine
DX: M51.16 Intervertebral disc disorders with radiculopathy, lumbar region (principal); M47.26 Other spondylosis with radiculopathy, lumbar region; M99.73 Connective tissue and disc stenosis of intervertebral foramina of lumbar region; R60.9 Edema, unspecified
CPT/HCPCS: 72148